=== PATIENT | female | born 1980 | race Caucasian/White ===

== ENCOUNTER 2017-01-31 23:22 | Emergency (ER) | payer MEDICAID ==
[2017-02-01 02:17] VITALS: BP 106/67
== END 2017-02-01 02:17 | disposition home or self-care (01) ==
LOC: ED 23:22
DX: R11.10 Vomiting, unspecified (principal)
CPT/HCPCS: Q0162

== ENCOUNTER 2020-01-30 12:32 | Emergency (ER) | payer MEDICAID ==
[~2020-01-30] VITALS: Ht 162.6 cm; Wt 59.0 kg
[2020-01-30 12:34] VITALS: Ht 162.6 cm; Wt 59.0 kg
[2020-01-30 14:57] VITALS: BP 128/95
== END 2020-01-30 14:30 | disposition home or self-care (01) ==
LOC: ED 12:32
DX: J10.1 Influenza due to other identified influenza virus with other respiratory manifestations (principal); Z20.828 Contact with and (suspected) exposure to other viral communicable diseases
CPT/HCPCS: Q0092; U0002